=== PATIENT | female | born 1940 | race Caucasian/White ===

== ENCOUNTER 2018-03-28 16:14 | Outpatient (CLI) ==
[2014-10-09 04:59] VITALS: BMI 20.2
== END 2018-03-28 16:15 | disposition home or self-care (01) ==
LOC: NONPT 16:14
PROVIDERS: ATTEND General Practice
DX: E11.65 Type 2 diabetes mellitus with hyperglycemia (principal)
CPT/HCPCS: 80053; 81001; 85025; 87086; 87186

== ENCOUNTER 2018-03-31 16:10 | Outpatient (CLI) ==
[2014-10-09 04:59] VITALS: BMI 20.2
== END 2018-03-31 16:11 | disposition home or self-care (01) ==
LOC: NONPT 16:10
PROVIDERS: ATTEND General Practice
DX: N39.0 Urinary tract infection, site not specified (principal); R73.9 Hyperglycemia, unspecified
CPT/HCPCS: 81001; 87086; 87186

== ENCOUNTER 2018-04-09 08:20 | Outpatient (CLI) ==
[2014-10-09 04:59] VITALS: BMI 20.2
== END 2018-04-09 08:21 | disposition home or self-care (01) ==
LOC: NONPT 08:20
PROVIDERS: ATTEND General Practice
DX: N39.0 Urinary tract infection, site not specified (principal)
CPT/HCPCS: 81001

== ENCOUNTER 2018-04-20 12:39 | Inpatient (IN) | payer OTHER ==
--- NOTE | 2018-04-20 13:06 | CT ---
EXAM: CT brain without contrast HISTORY: Encephalopathy TECHNIQUE: Multi-slice sequential. Coronal and sagittal reformations were performed. COMPARISON: 10/08/2014 FINDINGS: There is no acute intracranial hemorrhage, extraxial fluid collection, mass affect, or midlineshift. There is moderate to advanced diffuse sulcal prominence. The bilateral lateral ventricles are enlarg ed. The bicarbonate ventricular distance measures 4.6 cm, previously measuring 4.1 cm and 2014. Enl argement of the temporal horns is present. Periventricular white matter hypodensity is seen. Intrac ranial atherosclerosis is present. The basal cisterns are patent. No large vascular territory area of hypodensity is seen within the brain. The calvarium is unremarkable. Visualized paranasal sinuses are clear. Mastoid air cells are clear. IMPRESSION: 1. No acute intracranial hemorrhage or midline shift. 2. Ventriculomegaly. Differential includes central atrophy versus normal pressure hydrocephalus. 3. Moderate to advanced atrophy, small vessel ischemic disease, and intracranial atherosclerosis.
--- NOTE | 2018-04-20 13:22 | CT ---
EXAM: CT chest without contrast. HISTORY: Cough. Comparison: None available at the time of dictation Technique: CT chest was performed without contrast. Axial, coronal and sagittal reconstructions wer e obtained. Findings: Lung window evaluation demonstrates and patchy mild airspace opacities at the posterior lower lungs b ilaterally. There is a 5 mm subpleural nodule seen at the left lung lower lobe at axial image number 24. Left shala ng base calcified granulomas are present.. There is a right lung apex 5 mm nodule present at axial im age number 17. There is a trace right pleural effusion. Thoracic soft tissue evaluation demonstrates no definitive pathologically enlarged axillary or medias tinal lymphadenopathy identified. Hilar lymphadenopathy is not well assessed in the absence of IV co ntrast. Cardiac size is within normal limits. Atherosclerotic arterial vascular calcifications are p resent including within the coronary artery distribution. There is a small hiatal hernia present. Upper abdominal soft tissue evaluation is limited on noncontrast CT chest. Bone window evaluation demonstrates thoracic spine degenerative changes. Posterior right ninth and te nth rib deformities suggest sites of previous rib fractures. Posterior left tenth rib deformitysugges ts previous rib fracture site. There is a severe T10 compression fracture deformity seen. There is th oracic spine kyphosis seen. There appears to be an element of ankylosis of the lower thoracic spine. Impression: 1. Minimal opacities at the posterior lower lungs suggestive of dependent atelectasis versus element of minimal pneumonia infiltrate. 2. 5 mm subpleural left lung lower lobe indeterminate nodule and 5 mm right lung apex nodule. Recom mend CT followup in 3-6 months to assess stability. 3. Atherosclerotic arterial vascular calcifications including within the coronary artery distributio n. 4. Small hiatal hernia. 5. Trace right pleural effusion. 6. Skeletal findings as detailed in the body of the report.
--- NOTE | 2018-04-20 13:30 | CT ---
Exam: CT abdomen pelvis without intravenous contrast. Comparison: None available. Reason for exam: Recent UTI assess for obstruction. FINDINGS: Basilar atelectasis/pneumonia in partially imaged lung bases. Image interpretation is limited by the lack of intravenous contrast administration. There is a small hiatal hernia. Old granulomas disease is seen within the spleen. The adrenal glands, splenic parenchyma, and pancre as appears grossly unremarkable although evaluation is limited by the lack of intravenous contrast. The gallbladder appears grossly unremarkable without wall thickening. No hydronephrosis or hydroureter is seen in either kidney. There are are small (2 mm) bilateral jumana l vascular calcifications. Renal cortical hypodensities are seen bilaterally too small to be actively characterize. No focal small bowel dilatation or transition point. There is a small periumbilical hernia containing fat. The appendix is not definitively seen. No inflammatory changes are seen in the expected location of the appendix. Operative changes are seen after bilateral hip arthroplasties. The pelvis is incompletely evaluated secondary to metallic streak artifact from the aforementioned hi p arthroplasties. There appears nonspecific pelvic soft tissue on axial images 91-112. Degenerative disease is seen in the thoracic spine with chronic-appearing compression deformities wit h osteophyte formation. The imaged osseous structures appear diffusely demineralized Impression: 1. Basilar atelectasis/pneumonia. 2. No acute inflammatory findings are seen within the abdomen or pelvis although evaluation is signi ficantly limited by metallic streak artifact in the pelvis and a lack of intravenous contrast adminis tration. 3. There is apparent nonspecific pelvic soft tissue incompletely evaluated. If clinical concern exi sts, transvaginal and transabdominal ultrasonographic evaluation versus MRI may be performed for furt her characterization. 3. Hiatal hernia. 4. Renal parenchymal hypodensities incompletely evaluated on this exam. Ultrasound is recommended f or further characterization.
--- NOTE | 2018-04-20 14:27 | ED.PDOC ---
General ED Provider: Dr. JEROMY DIMAS-ER Chief Complaint: Altered Mental Status Stated Complaint: sent from the [facility] with decreasing responsiveness Time Seen by Physician: 12:40 Mode of Arrival: Stretcher Information Source: Longterm, EMT Exam Limitations: No limitations Primary Care Provider[facility] Nursing and Triage Documentation Reviewed and Agree: Yes Does patient meet sepsis criteria?: No System Inflammatory Response Syndrome: Not Applicable Sepsis Protocol: For patient's 13 years and over: Temp is 96.8 and below OR 101 and greater Pulse >90 BPM Resp >20/minute Acutely Altered Mental Status Are patient's symptoms suggestive of a new infection, such as: -Pneumonia -Skin, Soft Tissue -Endocarditis -UTI -Bone, Joint Infection -Implantable Device -Acute Abdominal Infection -Wound Infection -Meningitis -Blood Stream Catheter Infection -Unknown Neurological Complaint Exam - Altered Mental Status Complaint/Exam Current Mental Status: Unresponsiveness Last Known Well: yesterday Onset: Gradual Symptoms Are: Still present Initial Severity: Mild Current Severity: Moderate Eye Deviation Present: No Character: Reports: Responsiveness, Lethargy Aggravating: Reports: None Alleviating: Reports: None Associated Signs and Symptoms: Reports: Weakness Related History: Reports: Similar episode Related Surgical History: Reports: None Carotid Bruit Present: No Nystagmus Present: No Gag Reflex Present: Yes Meningeal Signs Positive: No Focal Weakness: Present: None Focal Sensory Loss: Present: None Gait: Normal Romberg Test Positive: No Babinski Sign: Negative Right, Negative Left Signs of Injury: Present: Normal findings Thrombolytics Considered: No Differential Diagnoses: Metabolic Disorder, Sepsis Review of Systems - Review Of Systems Constitutional: Reports: No symptoms Eyes: Reports: No symptoms Ears, Nose, Mouth, Throat: Reports: No symptoms Respiratory: Reports: No symptoms Cardiac: Reports: No symptoms GI: Reports: No symptoms : Reports: No symptoms Musculoskeletal: Reports: No symptoms Skin: Reports: No symptoms Neurological: Reports: Cognitive dysfunction, Weakness Endocrine: Reports: No symptoms Hematologic/Lymphatic: Reports: No symptoms All Other Systems: Reviewed and Negative Past Medical History - Past Medical History Previously Healthy: No Endocrine: Reports: Unknown Cardiovascular: Reports: Unknown Respiratory: Reports: Unknown Hematological: Reports: Unknown Gastrointestinal: Reports: Unknown Genitourinary: Reports: Unknown Neuro/Psych: Reports: Unknown Musculoskeletal: Reports: Unknown Cancer: Reports: Unknown Last Menstrual Period: menopause - Surgical History General Surgical History: Reports: Unknown - Family History Family History: Reports: Unknown - Social History Smoking Status: Never smoker Hx Substance Use: No Alcohol Screening: None Physical Exam - Physical Exam Appearance: Ill-appearing, No pain distress Ill-appearing: Moderate Eyes: GENEVA, EOMI, Conjunctiva clear ENT: Ears normal, Nose normal, Oropharynx normal Neck: Supple Respiratory: Airway patent Cardiovascular: RRR, Pulses normal, No rub, No murmur GI/: Soft, Nontender, No masses, Bowel sounds normal, No Organomegaly Musculoskeletal: Normal strength Skin: Warm, Dry, Normal color Neurological: Sensation intact, Motor intact, Reflexes intact, Cranial nerves intact, Alert, Oriented Psychiatric: Affect appropriate, Mood appropriate Interpretation - Radiology Interpretation Radiology Interpretation By: Radiologist Radiology Results: Negative Exam Interpreted: CT Scan - EKG Interpretation Time of EKG #1: 14:27 Rate: Normal Rhythm: Sinus Ectopy: None Mcgregor: NL ST Segment: Normal Interpretation: nsr Physician Notification - Case Discussed Physician Notified: dr montero Time of Notification: 14:31 Critical Care Note - Critical Care Note Total Time (mins): 0 Course - Course Hematology/Chemistry: 04/20/18 13:14 04/20/18 13:14 Orders, Labs, Meds: Lab Review 04/20/18 04/20/18 04/20/18 12:40 13:14 13:14 WBC 9.85 RBC 3.37 L Hgb 10.6 L Hct 32.7 L MCV 97.0 MCH 31.5 H MCHC 32.4 RDW Coeff of Arely 12.5 Plt Count 239 Immature Gran % (Auto) 0.3 Neut % (Auto) 80.7 Lymph % (Auto) 7.5 L Williams % (Auto) 11.0 H Eos % (Auto) 0.4 Baso % (Auto) 0.1 Immature Gran # (Auto) 0.0 Neut # (Auto) 8.0 H Lymph # (Auto) 0.7 Williams # (Auto) 1.1 Eos # (Auto) 0.0 Baso # (Auto) 0.0 Puncture Site Rrad O2 Saturation 99.0 ABG pH 7.421 ABG pCO2 42.1 ABG pO2 124.0 H ABG HCO3 27.3 H ABG Total CO2 29 H ABG Base Excess 3 H Rodríguez Test + O2 Delivery Device Nc Oxygen Liter Flow 2.00 Sodium 142 Potassium 4.1 Chloride 105 Carbon Dioxide 28 Anion Gap 13.1 BUN 22 H Creatinine 1.25 Estimated GFR (MDRD) 42.00 BUN/Creatinine Ratio 17.60 Glucose 248 H Lactic Acid Calcium 8.9 Total Bilirubin 0.4 AST 11 L ALT 10 L Alkaline Phosphatase 92 Ammonia Total Protein 6.7 Albumin 2.8 L Globulin 3.9 Albumin/Globulin Ratio 0.72 Procalcitonin Urine Color Urine Clarity Urine pH Ur Specific [place] Urine Protein Urine Glucose (UA) Urine Ketones Urine Blood Urine Nitrite Urine Bilirubin Urine Urobilinogen Ur Leukocyte Esterase Urine Microscopic WBC Ur Squamous Epith Cells 04/20/18 04/20/18 04/20/18 13:14 13:14 13:14 WBC RBC Hgb Hct MCV MCH MCHC RDW Coeff of Arely Plt Count Immature Gran % (Auto) Neut % (Auto) Lymph % (Auto) Williams % (Auto) Eos % (Auto) Baso % (Auto) Immature Gran # (Auto) Neut # (Auto) Lymph # (Auto) Williams # (Auto) Eos # (Auto) Baso # (Auto) Puncture Site O2 Saturation ABG pH ABG pCO2 ABG pO2 ABG HCO3 ABG Total CO2 ABG Base Excess Rodríguez Test O2 Delivery Device Oxygen Liter Flow Sodium Potassium Chloride Carbon Dioxide Anion Gap BUN Creatinine Estimated GFR (MDRD) BUN/Creatinine Ratio Glucose Lactic Acid 21.4 H Calcium Total Bilirubin AST ALT Alkaline Phosphatase Ammonia 19 Total Protein Albumin Globulin Albumin/Globulin Ratio Procalcitonin 0.81 Urine Color Urine Clarity Urine pH Ur Specific [place] Urine Protein Urine Glucose (UA) Urine Ketones Urine Blood Urine Nitrite Urine Bilirubin Urine Urobilinogen Ur Leukocyte Esterase Urine Microscopic WBC Ur Squamous Epith Cells 04/20/18 13:55 WBC RBC Hgb Hct MCV MCH MCHC RDW Coeff of Arely Plt Count Immature Gran % (Auto) Neut % (Auto) Lymph % (Auto) Williams % (Auto) Eos % (Auto) Baso % (Auto) Immature Gran # (Auto) Neut # (Auto) Lymph # (Auto) Williams # (Auto) Eos # (Auto) Baso # (Auto) Puncture Site O2 Saturation ABG pH ABG pCO2 ABG pO2 ABG HCO3 ABG Total CO2 ABG Base Excess Rodríguez Test O2 Delivery Device Oxygen Liter Flow Sodium Potassium Chloride Carbon Dioxide Anion Gap BUN Creatinine Estimated GFR (MDRD) BUN/Creatinine Ratio Glucose Lactic Acid Calcium Total Bilirubin AST ALT Alkaline Phosphatase Ammonia Total Protein Albumin Globulin Albumin/Globulin Ratio Procalcitonin Urine Color Yellow Urine Clarity Turbid Urine pH 5.5 Ur Specific [place] 1.025 Urine Protein 3+ Urine Glucose (UA) 2+ Urine Ketones Negative Urine Blood 2+ Urine Nitrite Positive Urine Bilirubin Negative Urine Urobilinogen 0.2 Ur Leukocyte Esterase 3+ Urine Microscopic WBC Tntc Ur Squamous Epith Cells Not present Orders Category Date Time Status ABG DRAW REQUEST Stat CARDIO 04/20/18 12:40 Completed EKG-(ED ONLY) Stat CARDIO 04/20/18 12:40 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] .ONCE EMERGENCY 04/20/18 12:41 Active ED IV/MEDIPORT/POWERPORT .ONCE EMERGENCY 04/20/18 12:41 Active ABG Stat LAB 04/20/18 12:40 Completed AMMONIA Stat LAB 04/20/18 13:14 Completed BLOOD CULTURE (ED ONLY) Stat LAB 04/20/18 Ordered CBC W/ AUTO DIFF Stat LAB 04/20/18 13:14 Completed COMPREHENSIVE METABOLIC PANEL Stat LAB 04/20/18 13:14 Completed LACTIC ACID Stat LAB 04/20/18 13:14 Completed PROCALCITONIN Stat LAB 04/20/18 13:14 Completed URINALYSIS C & S IF INDICATED Stat LAB 04/20/18 13:55 Completed URINE CULTURE Stat LAB 04/20/18 13:55 Received 0.9 % Sodium Chloride [Saline Flush] MEDS 04/20/18 12:41 Ordered 1 syr IVF PRN PRN [address] ABDOMEN/PELVIS WO CONTRAST Stat RADS 04/20/18 12:[address] CHEST W/O CONTRAST Stat RADS 04/20/18 12:[address] HEAD W/O CONTRAST Stat RADS 04/20/18 12:41 Completed Medications Generic Name Dose Route Start Last Admin Trade Name Freq PRN Reason Stop Dose Admin Sodium Chloride 1 syr 04/20/18 12:41 Saline Flush IVF PRN PRN To flush IV Vital Signs: Temp Pulse Resp BP Pulse Ox 04/20/18 12:39 97.4 F L 68 16 150/78 H 100 Departure - Departure Time of Disposition: 14:31 Disposition: ADMITTED INPATIENT Discharge Problem: Encephalopathy UTI (urinary tract infection) Qualifiers: Urinary tract infection type: site unspecified Hematuria presence: without hematuria Qualified Code(s): N39.0 - Urinary tract infection, site not specified Instructions: Urinary Tract Infection in Women (ED) Condition: Stable Pt referred to PMD for follow-up: Yes IPMP verified?: No Allergies/Adverse Reactions: Allergies No Known Allergies Allergy (Verified 04/20/18 12:51) Home Medications: Ambulatory Orders Insulin Regular, Human [Novolin R Insulin] 0 unit SUBCUT ACCUCHECK Q6H PRN 08/29 Insulin Glargine,Hum.rec.anlog [Lantus] 14 unit SUBCUT BEDTIME 30 Days ml 10/11 Aspirin [Aspir 81] 81 mg PO DAILY #30 tab-cap 01/25/17 Dextrose [Glucose Gel] 38 gm PO PRN #1 kt 01/25/17 Erythromycin Base [Erythromycin] 3.5 gm OP DAILY #1 tb 01/25/17 Ferrous Sulfate [Ferrousul] 325 mg PO BID #60 tab-cap 01/25/17 Glucagon,Human Recombinant [Glucagon Emergency Kit] 1 mg IJ PRN #1 kt 01/25/17 Levothyroxine Sodium 100 mcg PO DAILY #30 tab-cap 01/25/17 Lisinopril 10 mg PO BID #60 tab-cap 01/25/17 Polyethylene Glycol 3350 [Miralax] 527 gm PO DAILY #527 g 01/25/17 Sennosides/Docusate Sodium [Senokot-S Tablet] 1 each PO DAILY #30 tab-cap Nystatin 1 each PO 2-3XD PRN #1 félix 02/06/17 Transfer Form Completed: No Disposition Discussed With: Family
[2018-04-20] MEDS ORDERED: NON-FORMULARY MEDICATION (Cholecalciferol (Vitamin D3) [Vitamin D3] 50,000 UNIT) PO SCH (14:45)
[2018-04-20] MEDS ORDERED: AZACTAM ONE ×2 (15:26→21:41)
[2018-04-20 15:28] VITALS: BMI 17.9
[2018-04-20] MEDS: AZACTAM 1 GM in SODIUM CHLORIDE 50 ML IV SCH ×2 (15:37→21:50)
[2018-04-20] MEDS: ZESTRIL PO SCH ×2 (15:38→21:50)
[2018-04-20] MEDS: HUMULIN R SUBCUT PRN (16:50)
[2018-04-20] MEDS: LEVEMIR SUBCUT SCH (21:51)
[2018-04-21] MEDS: AZACTAM 1 GM in SODIUM CHLORIDE 50 ML IV SCH ×3 (06:32→21:06)
[2018-04-21] MEDS: HUMULIN R SUBCUT PRN ×3 (06:32→21:49)
[2018-04-21] MEDS ORDERED: DRISDOL PO SCH (07:30)
[2018-04-21] MEDS ORDERED: ERYTHROMYCIN OP SCH (09:00)
[2018-04-21] MEDS ORDERED: NON-FORMULARY MEDICATION (Sennosides/Docusate Sodium [Senokot-S Tablet] 1 EACH) PO SCH (09:00)
[2018-04-21] MEDS ORDERED: NON-FORMULARY MEDICATION (Polyethylene Glycol 3350 [Miralax] 17 GM) PO SCH (09:00)
[2018-04-21] MEDS: LOVENOX SUBCUT SCH (10:30)
[2018-04-21] MEDS: ERYTHROMYCIN OP SCH (10:37)
[2018-04-21] MEDS: SYNTHROID PO SCH (10:37)
[2018-04-21] MEDS: COLACE PO SCH (10:38)
[2018-04-21] MEDS: ASPIRIN EC PO SCH (10:38)
[2018-04-21] MEDS: MIRALAX PO SCH (10:39)
[2018-04-21] MEDS: ZESTRIL PO SCH ×3 (10:44→21:07)
[2018-04-21] MEDS: ZYPREXA PO SCH (10:44)
[2018-04-21] MEDS: SENNA PO SCH (10:44)
[2018-04-21] MEDS: LEVEMIR SUBCUT SCH (21:40)
[2018-04-22] MEDS: AZACTAM 1 GM in SODIUM CHLORIDE 50 ML IV SCH (04:33)
[2018-04-22] MEDS: SYNTHROID PO SCH (06:01)
[2018-04-22] MEDS: COLACE PO SCH (08:58)
[2018-04-22] MEDS: ZYPREXA PO SCH (08:58)
[2018-04-22] MEDS: MIRALAX PO SCH (08:58)
[2018-04-22] MEDS: SENNA PO SCH (08:58)
[2018-04-22] MEDS: ASPIRIN EC PO SCH (08:58)
[2018-04-22] MEDS: ERYTHROMYCIN OP SCH (08:59)
[2018-04-22] MEDS: ZESTRIL PO SCH ×3 (09:01→20:26)
[2018-04-22] MEDS: LOVENOX SUBCUT SCH (09:10)
[2018-04-22] MEDS: HUMULIN R SUBCUT PRN ×2 (11:12→20:39)
[2018-04-22] MEDS: INVANZ 1 GM in SODIUM CHLORIDE 50 ML IV SCH (13:16)
[2018-04-22] MEDS: LEVEMIR SUBCUT SCH (20:26)
[2018-04-23] MEDS: SYNTHROID PO SCH (05:33)
[2018-04-23] MEDS: ZYPREXA PO SCH (08:14)
[2018-04-23] MEDS: SENNA PO SCH (08:14)
[2018-04-23] MEDS: ASPIRIN EC PO SCH (08:14)
[2018-04-23] MEDS: ZESTRIL PO SCH ×3 (08:14→20:42)
[2018-04-23] MEDS: MIRALAX PO SCH (08:14)
[2018-04-23] MEDS: COLACE PO SCH (08:14)
[2018-04-23] MEDS: LOVENOX SUBCUT SCH (08:15)
[2018-04-23] MEDS: ERYTHROMYCIN OP SCH (08:15)
[2018-04-23] MEDS: INVANZ 1 GM in SODIUM CHLORIDE 50 ML IV SCH (08:15)
[2018-04-23] MEDS: HUMULIN R SUBCUT PRN ×2 (11:09→17:07)
[2018-04-23] MEDS: LEVEMIR SUBCUT SCH (20:42)
[2018-04-24] MEDS: HUMULIN R SUBCUT PRN ×2 (05:34→11:15)
[2018-04-24] MEDS: SYNTHROID PO SCH (05:35)
[2018-04-24] MEDS: COLACE PO SCH (08:04)
[2018-04-24] MEDS: SENNA PO SCH (08:04)
[2018-04-24] MEDS: ERYTHROMYCIN OP SCH (08:04)
[2018-04-24] MEDS: ASPIRIN EC PO SCH (08:04)
[2018-04-24] MEDS: MIRALAX PO SCH (08:04)
[2018-04-24] MEDS: ZYPREXA PO SCH (08:04)
[2018-04-24] MEDS: ZESTRIL PO SCH ×2 (08:04→14:51)
[2018-04-24] MEDS: LOVENOX SUBCUT SCH (08:05)
[2018-04-24] MEDS: INVANZ 1 GM in SODIUM CHLORIDE 50 ML IV SCH (08:18)
--- NOTE | 2018-04-24 09:39 | PN ---
DATE OF SERVICE: 04/22/18 SUBJECTIVE: The patient is alert and does answer questions. I asked her if her Rosas was here today or visited her and she said no. She had been eating. Her heart is normal sinus rhythm VITAL SIGNS: Temperature 97.5, pulse 60, blood pressure 152/62, respiratory rate 18 and oxygen saturation 97% at 1 liter nasal oxygen. Medication was changed to Ertapenem from Azactam. Urine has e-coli and ESBL positive and sensitive to only to a few medications. She did eat more today, 75 % of dinner. The patient is incontinent of urine. Accu-check 04/20 was 3/27 and 04/21 was 157 and today 04/22 is 90. CBC is essentially unchanged. Chemistry shows normal electrolytes or close to normal. Sugar did come down to 53 this morning. BUN is rising from 22 to 32. The GFR however is improving from 42 to 70. The patient continues to be afebrile and seems to be alert most of the time but she will most likely discharged back to the assisted. GENESIS
--- NOTE | 2018-04-24 10:40 | PN ---
DATE OF SERVICE: 04/21/18 SUBJECTIVE: Mr. Lewis did come to the office and I did talk to him in the morning about 11:00. He was concerned about the high blood sugar. I did tell him that it is very difficult to control sugar for Mrs. Lewis. She had been using insulin since she was 13 years of age. It is difficult to predict, sometime Mrs. Lewis would not eat. So if the sugar is low could not get the sugar just to cover the food she eats because we are not sure whether she will be eating. That would be more of a disastrous problem if her sugar would go down further to produce symptomatic hypoglycemia. A high would maybe be detrimental but it is probably less since the sugar would be coming down with administration of insulin. He was concerned about the 500. I did tell him that yes if Mrs. Mahers sugar is 500-600 and she will not be given any insulin then she would get into trouble soon or diabetic ketoacidosis but it is however unlikely. He was talking about the complications including the kidney. I did tell him that the kidney complications comes not only from the diabetes but also from the blood pressure and other problems related to, it is not solely from the diabetes. It is true that the diabetes can produce kidney problems called diabetic nephropathy. Even if her sugars are low that she can have three units of insulin just before eating but she has to start eating to demonstrate that indeed she is eating the coverage just before the meal is to simulate what happens when the pancreas is functioning. Somebody eats, the sugar rises and the pancreas puts out insulin but in her case the pancreas is not putting any insulin so we are giving it externally. He was concerned about not responding. She did not respond to him this morning when he tries to wake her up. He did ask a question if she feels ok and she said no. About noon time or soon after noontime the patient was eating, fed by the nurse. She was awake and alert. She was eating with the help of the nurse. I had remembered that Mrs. Lewis at times when I make rounds at the [facility] that would not answer me in order to examine her. At times she combative when she was awake. Did tell Mr. Lewis that we will try our best to control her diabetes but it is difficult already since she is fairly sensitive. VITAL SIGNS: Temperature 98.8, pulse 74, blood pressure 143/72, respiratory rate 20 oxygen saturation 100% at 2 liters. Probably needs to back off the oxygen. The patient has moderate severe anemia. It is of mixed origin. The WBC is normal as well as the plt count. Her blood sugar yesterday at the emergency room was 248 and it was 308 this morning. She is on the regular sliding scale. I would look at these results. A urine culture did show gram negative rods probably e-coli. Blood culture is negative for now. Mrs. Lweis's condition is not anything new to my estimation. We will have to try and treat the urinary tract infection, may have contributed to the changes of mentation. GENESIS
[2018-04-24] MEDS ORDERED: DULCOLAX RC STA (15:15)
[2018-04-24 17:33] VITALS: BP 147/61; TEMP 98.6
--- NOTE | 2018-05-16 14:45 | HP ---
DATE OF SERVICE: 04/20/18 CHIEF COMPLAINT: Altered level of consciousness. SOURCE OF HISTORY: Triage nurse at the emergency room, nurse at [facility]. HISTORY OF PRESENT ILLNESS: The patient seemed to have difficulty responding to pain stimulation and the sugar was 400 plus and the patient was given 10 units of insulin by the nurse. The was present during the episode. The nurse that was in charge of the patient at that time was a temporary nurse. The EMS personnel informed the ER that the patient is nonverbal and always had been and reacts only to pain stimulus. The patient was noted to be pale but warm and dry. Accu-check on the ambulance was 375. The patient was noted in the emergency room to respond verbally to her name. She would answer yes or no. The emergency room physician mentioned when talking to me that the patient does arouse but goes back to sleep. The workup done in the emergency room consisted of abdominal CT plus pelvis, the impression is basilar atelectasis or pneumonia, no acute inflammatory findings are seen within the abdomen or pelvis, metallic artifact in the pelvis. There is apparent nonspecific pelvic soft tissue incompletely evaluated. Recommended transvaginal and transabdominal ultrasound. I don't think the patient will tolerate an MRI. Transabdominal ultrasound may be feasible. CT chest minimal opacities at the posterior lower lung suggestive of dependent atelectasis. Head CT - no acute intracranial hemorrhage or midline shift. Ventriculomegaly. Differential includes central atrophy vs normal pressure hydrocephalus. Moderate to advanced atrophy, small vessel ischemic disease and intracranial atherosclerosis and intracranial atherosclerosis. Labs showed WBC with moderate anemia, some indices mixed. Arterial blood gases oxygen saturation 99, pH 7.421, p02 124, HC03 27, total c02 29, FI02 2L oxygen nasal. CMP BUN 22, EGFR 42, creatinine 1.225, Blood sugar 248. Lactic acid 21.4 upper normal, 19.8. Procalcitonin 0.81. Liver normal. Albumin low 2.8. UA catheterized too numerous white cells, 3+ leukocyte esterase, nitrite positive, 2+ blood. Ketones negative, 2+ glucose, 3+ protein. No squamous cells. PAST PERSONAL HISTORY: The patient had been treated with Cipro for UTI. The patient was then admitted for further treatment because of altered consciousness probably secondary to urinary tract infection. The patient had bilateral cataract surgery, history of retinal hemorrhage, history of retinal hemorrhage, history of electrolyte imbalance consisting of hyperkalemia and hypokalemia and also tachy arrhythmias. The patient also had hypertension, surgery to the breast for a cyst. The patient had bilateral hip fractures and had been operated. Also had a broken right shoulder. The patient has diabetes mellitus on Insulin. Also has hypothyroidism. Psychiatric problems were present but not specified. She did have anxiety in the past. FAMILY HISTORY: Unable to obtain family history. 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 She never had any in her marriage. She never did smoke any cigarettes. No alcoholic beverages. MEDICATIONS: (Prior to this admission at the detention) Humulin R sliding scale Aspirin 81 mg daily 8 gm Sugar, glucose gel p.r.n. for hypoglycemia Miralax 17 gm daily Glucagon for hypoglycemia Erythromycin base ointment to be applied daily Lisinopril 10 mg three times a day (has to clarify this at the detention) Senokot S one daily Levothyroxine 100 mcg daily Nystatin powder p.r.n. Vitamin D3 50,000 international units monthly Tylenol 325 mg twice a day p.r.n. Vitamin B12 1,000 mcg IM weekly Zyprexa 2.5 mg daily Levemir 8 units subcutaneously at bedtime ALLERGIES: NKDA REVIEW OF SYSTEMS: - THE PATIENT IS UNABLE TO ANSWER ANY. THIS PATIENT HAD NOT BEEN ORIENTED TO TIME, PLACE, AND PERSON WELL SITUATION FOR SEVERAL YEARS. PHYSICAL EXAMINATION: GENERAL: 77-year-old female who had been senile for several years and nonverbal. She sometimes would refuse examination. Verbally she could not tell you that she refused it but she would fight you with her hands. The patient at time of my examination was arousable and was murmuring like she had been doing at the detention. She was not dyspneic or tachypneic without cyanosis. VITAL SIGNS: 5:47 p.m. showed temperature 100.3, pulse 82, BP 161/66, respiratory rate 24, oxygen saturation 92 on 2L (this may not be accurate since saturation was 99 on 2L with ABGs and the p02 was more than 120). HEAD: Unremarkable. Face is symmetrical and equal with no facial weakness, no redness. No significant tenderness to palpation and/or pressure frontomaxillary sinus areas. The patient did not reveal any facial grimaces during palpation. EYES: Pupils could not be evaluated since the patient closes her eyes very tightly. MOUTH: Could not be examined. The patient doesn't open her mouth. NECK: No masses. No bruit. No tenderness. No rigidity. CHEST: Essentially symmetrical and equal. BREASTS: Left breast has some thickening. I don't know if she can tolerate a mammogram. I would discuss this with her , Rosas, whether she wanted a mammogram and if she does, I am not sure about what gain could be made. LUNGS: Unable to determine since the patient does not follow verbal commands. I don't hear any breath sounds. She is breathing enough for what she needs. HEART: Normal sinus rhythm. ABDOMEN: Soft with no remarkable tenderness. No guarding. Bowel sounds are active. No masses palpable. LOWER EXTREMITIES: Essentially symmetrical and equal with no edema and no pedal pulses. UPPER EXTREMITIES: Symmetrical and equal. ASSESSMENT: 1. Altered mental status maybe secondary to urinary tract infection. 2. UTI 3. Senile dementia, severe. 4. Diabetes mellitus, insulin dependent, difficult to control. 5. Hypertension 6. Hypothyroidism 7. Chronic kidney disease, Stage 3 8. Anemia PROGNOSIS: Poor. MTDD
--- NOTE | 2018-06-18 12:54 | DS ---
DATE OF SERVICE: 04/24/18 PATIENT IDENTIFICATION: 77 year old female with advanced dementia was transferred from [facility] to the emergency room. The patient's blood sugar at the ambulance was 375. HOSPITAL COURSE: Her workup in the emergency room consisted of a CAT scan of the head chest, abdomen and pelvis. All of these are without contrast. Labs on 04/20/18 13:14 showed moderate to severe anemia, normal WBC, 10.6 grams hgb and 32.7 hct. Arterial blood gasses oxygen saturation 99 at 2 liters, pH 7.421, pCO2 42.1, oxygen 124, bicarb HCO3 27.3, total CO2 29, Base excess +3. Electrolytes are normal. Renal panel; BUN 22, creatinine 1.25, GFR estimated 42, blood sugar 248 , lactic acid 21.4, procalcitonin 0.81. Urinalysis is abnormal pH 5.5, specific gravity 1.025, 3+ protein, 2+ sugar, negative ketones, 2+ blood, positive Nitrate. Leukocyte 3+, WBC too numerous to count, squamous epithelium negative. The patient in the emergency room was initiated with Azactam 1 gram intervenously Q 8 hours. The patient was placed on insulin sliding scale, Humulin R per protein, blood sugar minus 1 divided by 20 equals the number of units to be given before breakfast, lunch and before supper. The patient was given 8 units SUBCUT at bedtime. The Azactam was discontinued and replaced with Ertapenem 1gram intervenously daily. The patient was also given Lovenox 40mg SUBCUT. Intervenous normal saline 50cc, subsequent fasting blood sugars of this patient did show 308 on 04/21 and 53 on 04/22 and 228 on 04/24/18 just before discharge. The lactic acid had reduced to 5.9. The Procalcitonin is down to 0.56. The patient's appetite has been decreased and had been refusing at times however the patient on the last day of hospitalization did eat 100% of her breakfast. She refuses mostly the snacks. The patient was incontinent of urine but no Wilks Catheter was inserted. Her GFR has increased from 42 on admission to 51 on the 21 of April and 70 on the and 72 just before discharge. I had talked to Mr. Lewis with regard to his . I did tell him that all the tests done; CAT of the chest and abdomen and head does not show any acute processes. Her behavior is mostly about the same and the fluctuations of his blood sugar is not new. I felt that her condition is stable. She did spike a temperature once on admission 100.3 04/20/18 at 5:47pm. Her temperature since then had remained normal. Her blood pressure had fluctuated to slightly elevated to normal and on discharge her blood pressure was normal at 133/66. At 9:52am 04/24/18 temperature was 98.6, pulse 80, blood pressure 150/70 and respiratory rate 12 with oxygen saturation 97% at room air. The patient was not distress and her color is good. Abdomen has no significant tenderness and unable to assess lungs since the patient does not take a deep breath on command. The patient at discharge was given Macrobid 100mg twice a day and resume the rest of her medications including insulin. The patient will be followed in the senior care during rounds. Medication for 10 days. FINAL DIAGNOSES: 1. Diabetes Mellitus, insulin dependant, Fluctuating blood sugar 2. Urinary tract infection, e-coli, ESBL positive 3. Senile dementia, severe 4. Moderate anemia 5. Hypertension PROGNOSIS: Poor TIME SPENT: GREATER THAN 30 MINUTES MTDD
== END 2018-04-24 17:49 | DRG 947 ==
LOC: ED 12:39 → MEDSURG A 14:36
PROVIDERS: ADMIT General Practice; ATTEND General Practice
DX: R53.1 Weakness (principal); G93.40 Encephalopathy, unspecified; N39.0 Urinary tract infection, site not specified; N18.3 Chronic kidney disease, stage 3 (moderate); E11.9 Type 2 diabetes mellitus without complications; E03.9 Hypothyroidism, unspecified; I10 Essential (primary) hypertension; D64.9 Anemia, unspecified; R53.83 Other fatigue; F03.90 Unspecified dementia, unspecified severity, without behavioral disturbance, psychotic disturbance, mood disturbance, and anxiety; Z79.4 Long term (current) use of insulin
CPT/HCPCS: 36415; 80048; 80053; 81001; 82140; 82803; 82962; 83605; 84145; 85025; 87040; 87081; 87086; 87186; 93005; 93010; 99284

== ENCOUNTER 2018-05-12 07:52 | Outpatient (CLI) | END 2018-05-12 07:53 | disposition home or self-care (01) | LOC: NONPT 07:52 | PROVIDERS: ATTEND General Practice | DX: N39.0 Urinary tract infection, site not specified (principal) | CPT/HCPCS: 81001 ==

== ENCOUNTER 2018-05-21 08:50 | Outpatient (CLI) | END 2018-05-21 08:51 | disposition home or self-care (01) | LOC: NONPT 08:50 | PROVIDERS: ATTEND General Practice | DX: N39.0 Urinary tract infection, site not specified (principal) | CPT/HCPCS: 81001; 87086; 87186 ==

== ENCOUNTER 2018-06-03 11:46 | Outpatient (CLI) | END 2018-06-03 11:47 | disposition home or self-care (01) | LOC: NONPT 11:46 | PROVIDERS: ATTEND General Practice | DX: N39.0 Urinary tract infection, site not specified (principal) | CPT/HCPCS: 81001 ==

== ENCOUNTER 2018-11-12 13:36 | Outpatient (CLI) | payer OTHER | END 2018-11-12 13:37 | disposition home or self-care (01) | LOC: NONPT 13:36 | PROVIDERS: ATTEND General Practice | DX: S91.301A Unspecified open wound, right foot, initial encounter (principal) | CPT/HCPCS: 87070; 87186 ==